=== PATIENT | female | born 1960 | race Caucasian/White ===

== ENCOUNTER → 2020-05-21 13:11 | Outpatient (CLI) | payer OTHER, SELFPAY ==
--- NOTE | ~2020-05-21 | MM_ITS ---
EXAMINATION: MM screening [facility] w [facility]if HISTORY: Screening TECHNIQUE: Craniocaudal and mediolateral oblique 3-D tomosynthesis images were obtained and synthetic 2-D images were generated. CAD analysis was submitted and interpreted. COMPARISON: Comparison to multiple prior studies sequentially, with oldest reviewed study dated 02/19. BREAST PARENCHYMAL COMPOSITION: There are scattered areas of fibroglandular density. FINDINGS: Stable benign-appearing bilateral breast calcifications. There is no evidence of suspicious mass, calcification, or architectural distortion to suggest malignancy in either breast. There has b een no suspicious interval change. IMPRESSION: 1. No mammographic evidence of malignancy. 2. Recommend routine screening mammography in one year. BI-RADS Category 2: Benign finding(s). Reviewed, dictated and finalized at location A. 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
== END ==
DX: Z12.31 Encounter for screening mammogram for malignant neoplasm of breast (principal)
CPT/HCPCS: 77063; 77067

== ENCOUNTER → 2021-07-02 14:01 | Outpatient (CLI) | payer OTHER, SELFPAY ==
--- NOTE | ~2021-07-02 | MM_ITS ---
EXAMINATION: MM screening [facility] BI w sherif HISTORY: Screening mammogram TECHNIQUE: Craniocaudal and mediolateral oblique 3-D tomosynthesis images were obtained and synthetic 2-D images were generated. CAD analysis was submitted and interpreted. COMPARISON: 05/21/2020, 05/04/2019, 04/15/2018 BREAST PARENCHYMAL COMPOSITION: There are scattered areas of fibroglandular density. FINDINGS: There is no suspicious mass, calcification, or architectural distortion to suggest malignan cy in either breast. There has been no suspicious interval change. IMPRESSION: 1. No mammographic evidence of malignancy. 2. Recommend routine screening mammography in one year. BI-RADS Category 1: Negative Reviewed, dictated and finalized at location A.
== END ==
DX: Z12.31 Encounter for screening mammogram for malignant neoplasm of breast (principal)
CPT/HCPCS: 77063; 77067

== ENCOUNTER → 2022-10-07 11:10 | Outpatient (CLI) | payer OTHER, SELFPAY ==
--- NOTE | ~2022-10-07 | MM_ITS ---
EXAMINATION: MM screening [facility] w sherif HISTORY: Screening mammogram TECHNIQUE: Craniocaudal and mediolateral oblique 3-D tomosynthesis images were obtained and synthetic 2-D images were generated. CAD analysis was submitted and interpreted. COMPARISON: 07/02/2021, 05/21/2020, 05/04/2019 bilateral screening mammogram examinations BREAST PARENCHYMAL COMPOSITION: There are scattered areas of fibroglandular density. FINDINGS: There is no evidence of suspicious mass, calcification, or architectural distortion to sugg est malignancy in either breast. There has been no suspicious interval change. IMPRESSION: 1. No mammographic evidence of malignancy. 2. Recommend routine screening mammography in one year. BI-RADS Category 1: Negative Reviewed, dictated and finalized at location A.
== END ==
PROVIDERS: PCP Student in an Organized Health Care Education/Training Program
DX: Z12.31 Encounter for screening mammogram for malignant neoplasm of breast (principal)
CPT/HCPCS: 77063; 77067

== ENCOUNTER 2024-01-12 14:56 | Outpatient (CLI) | payer OTHER, SELFPAY ==
--- NOTE | ~2024-01-12 | MM_ITS ---
EXAMINATION: MM screening [facility] BI w sherif HISTORY: Screening TECHNIQUE: Craniocaudal and mediolateral oblique 3-D tomosynthesis images were obtained and synthetic 2-D images were generated. CAD analysis was submitted and interpreted. COMPARISON: Comparison to multiple prior studies sequentially, with oldest reviewed study dated 03/20. BREAST PARENCHYMAL COMPOSITION: Not dense: There are scattered areas of fibroglandular density. FINDINGS: There is no evidence of suspicious mass, calcification, or architectural distortion to sugg est malignancy in either breast. There has been no suspicious interval change. IMPRESSION: 1. No mammographic evidence of malignancy. 2. Recommend routine screening mammography in one year. BI-RADS Category 1: Negative Reviewed, dictated and finalized at location B.
== END 2024-01-12 14:57 | disposition home or self-care (01) ==
LOC: MICIMG 14:57
PROVIDERS: PCP Student in an Organized Health Care Education/Training Program
DX: Z12.31 Encounter for screening mammogram for malignant neoplasm of breast (principal)
CPT/HCPCS: 77063; 77067

== ENCOUNTER 2024-04-06 01:09 | Day surgery (SDC) | payer OTHER, SELFPAY ==
[2024-03-30 11:15] VITALS: BMI 22.9
[2024-04-06 12:39] VITALS: BP 120/77; PULSE 90; RESP 14; TEMP 36.2; O2SAT 100
[2024-04-06] MEDS: LACTATED RINGERS 1,000 ML 150 ML IV CONT (12:47)
--- NOTE | 2024-04-06 13:48 | PM.IMHP ---
H&P: HPI History of Present Illness Date/Time: 04/06/24 13:48 Chief Complaint: Dysphagia Narrative: On 02/23/2024 I performed a balloon dilatation up to 15 mm in this patient with a peptic stricture. There was esophagitis and a possible Dennis's esophagus that could not be very well characterized because of the inflammatory component. She is here for follow-up. She states that she can swallow normally solids and liquids after dilatation. She is currently taking omeprazole 20 mg b.i.d.. Review of Systems Review of Systems: All systems reviewed & are unremarkable except as noted in HPI and below PMFSH Past Medical History Medical History Barretts esophagus GERD with esophagitis Lymphocytic colitis Family History Family History Mother Family history of schizophrenia Father Hypertension Other Diabetes mellitus Family history of cardiovascular disease Family history of mental disorder Social History Social History Smoking status: Never smoker Alcohol intake: never Substance use: never Substance use type: does not use Living arrangements: with family Spiritual care concerns: No Meds Home Medications and Allergies Home Medications ?Medication ?Instructions ?Recorded ?Confirmed ?Type ascorbate calcium (vitamin C) 500 500 mg PO BID 01/19/23 04/06/24 History mg tablet cholecalciferol (vitamin D3) 50 50 mcg PO DAILY 01/19/23 04/06/24 History mcg (2,000 unit) capsule multivitamin (Daily Multi-Vitamin 1 tablet PO DAILY 01/19/23 04/06/24 History tablet) budesonide 3 mg 3 mg PO DAILY #90 ea 02/24/24 04/06/24 Rx capsule,delayed,extended release omeprazole 20 mg tablet,delayed 20 mg PO BID #60 tabs 02/24/24 04/06/24 Rx release zinc 22 mg tablet 22 mg PO DAILY 03/30/24 04/06/24 History cetirizine 10 mg tablet (24Hour 10 mg PO DAILY allergy symptoms 04/06/24 04/06/24 History Allergy) Allergies Allergy/AdvReac Type Severity Reaction Status Date / Time clindamycin Allergy Unknown Rash Verified 03/30/24 11:34 erythromycin base Allergy Unknown Unknown Verified 03/30/24 11:34 ibuprofen Allergy Unknown Unknown Verified 03/30/24 11:34 Penicillins Allergy Unknown Unknown Verified 03/30/24 11:34 Sulfa (Sulfonamide Allergy Unknown Unknown Verified 03/30/24 11:34 Antibiotics) tetracycline Allergy Unknown RASH Verified 03/30/24 11:34 Tetracyclines Allergy Unknown Unknown Verified 03/30/24 11:34 Vital Signs Vital Signs - 24 hr 04/06/24 12:39 Temperature 97.1 F L Pulse Rate 90 Respiratory Rate 14 Blood Pressure 120/77 Pulse Oximetry 100 Oxygen Delivery Room Air Exam Const: General: cooperative and healthy appearing Resp: Effort & Inspection: normal respiratory effort and able to speak in complete sentences Auscultation: clear to auscultation bilaterally Cardio: Rate: regular rate Rhythm: regular rhythm GI: Inspection: normal to inspection GI Palp: No No hepatosplenomegaly present Auscultation: normal bowel sounds Rectal Exam: deferred Skin: General skin exam: normal color Psych: Appearance: grossly normal Mental Status: mental status grossly normal Assessment and Plan Assessment and plan (1) Peptic stricture of esophagus: Code(s): K22.2 - Esophageal obstruction Status: Acute Assessment and Plan: The patient is deemed a good candidate for the procedure. Will probablly take biopsies to r/o Dennis's and perform balloon dilatation as needed. Consent signed. Will proceed. (2) Barretts esophagus: Code(s): K22.70 - Dennis's esophagus without dysplasia Status: Acute
--- NOTE | 2024-04-06 13:49 | P.PNAN_ITS ---
Anes - Initial Pre Proc Eval Procedure: Operation Date: 04/06/24 14:00 Proposed Procedures p Esophagogastroduodenoscopy - Uche Lloyd MD Date/Time: 04/06/24 13:49 Surgeon: Uche Lloyd MD Pre Op Diagnosis: Esophageal obstruction Patient Data Age: 63 Gender: F Height: 1.68 m Weight: 61.9 kg Last Vital Signs Temp 36.2 C L 04/06/24 12:39 Pulse 90 04/06/24 12:39 Resp 14 04/06/24 12:39 BP 120/77 04/06/24 12:39 Pulse Ox 100 04/06/24 12:39 O2 Del Method Room Air 04/06/24 12:39 Allergies Allergy/AdvReac Type Severity Reaction Status Date / Time clindamycin Allergy Unknown Rash Verified 03/30/24 11:34 erythromycin base Allergy Unknown Unknown Verified 03/30/24 11:34 ibuprofen Allergy Unknown Unknown Verified 03/30/24 11:34 Penicillins Allergy Unknown Unknown Verified 03/30/24 11:34 Sulfa (Sulfonamide Allergy Unknown Unknown Verified 03/30/24 11:34 Antibiotics) tetracycline Allergy Unknown RASH Verified 03/30/24 11:34 Tetracyclines Allergy Unknown Unknown Verified 03/30/24 11:34 Home Medications ?Medication ?Instructions ?Recorded ?Confirmed ?Type ascorbate calcium (vitamin C) 500 500 mg PO BID 01/19/23 04/06/24 History mg tablet cholecalciferol (vitamin D3) 50 50 mcg PO DAILY 01/19/23 04/06/24 History mcg (2,000 unit) capsule multivitamin (Daily Multi-Vitamin 1 tablet PO DAILY 01/19/23 04/06/24 History tablet) budesonide 3 mg 3 mg PO DAILY #90 ea 02/24/24 04/06/24 Rx capsule,delayed,extended release omeprazole 20 mg tablet,delayed 20 mg PO BID #60 tabs 02/24/24 04/06/24 Rx release zinc 22 mg tablet 22 mg PO DAILY 03/30/24 04/06/24 History cetirizine 10 mg tablet (24Hour 10 mg PO DAILY allergy symptoms 04/06/24 04/06/24 History Allergy) Patient hx anesthesia problems: none Family hx anesthesia problems: none Results Review: All pre-operative results and documents have been reviewed as part of the pre- operative evaluation. PMFSH Past Medical History Medical History Barretts esophagus GERD with esophagitis Lymphocytic colitis Family History Family History Mother Family history of schizophrenia Father Hypertension Other Diabetes mellitus Family history of cardiovascular disease Family history of mental disorder Social History Social History Smoking status: Never smoker Alcohol intake: never Substance use: never Substance use type: does not use Living arrangements: with family Spiritual care concerns: No Anes - Eval Final PreProcedure Day of Procedure 04/06/24 13:49 Patient weight: normal Heart: regular rate and rhythm Lungs: clear to auscultation Airway: Mallampati scale class II Neurological: alert and oriented Last oral intake: >/= 8 hours ASA classification: II Emergent: no Anesthetic plan: proceed Anesthesia type and monitoring: general GIVS and standard monitoring Results Review: All pre-operative results and documents have been reviewed as part of the pre- operative evaluation. Informed Consent: The patient's anesthetic plan and its attendant risks and benefits were discussed with the patient/family/POA. Questions were solicited and answers provided to the satisfaction of the patient/family/POA.
[2024-04-06 14:05] VITALS: BP 119/77; PULSE 73; RESP 19; O2SAT 99
[2024-04-06 14:15] VITALS: BP 119/69; PULSE 74; RESP 19; O2SAT 99
[2024-04-06 14:25] VITALS: BP 137/72; PULSE 64; RESP 16; O2SAT 99
== END 2024-04-06 14:38 | disposition home or self-care (01) ==
PROVIDERS: PCP Student in an Organized Health Care Education/Training Program; Visit Provider Internal Medicine Gastroenterology
PROC: 0DJ08ZZ Inspection of Upper Intestinal Tract, Via Natural or Artificial Opening Endoscopic (ICD-10-PCS; CPT 43235; principal; 2024-04-06 14:00)
DX: Z09 Encounter for follow-up examination after completed treatment for conditions other than malignant neoplasm (principal); K21.9 Gastro-esophageal reflux disease without esophagitis; Z87.19 Personal history of other diseases of the digestive system
CPT/HCPCS: 43239; 88305; J2003; J2704; J7120

== ENCOUNTER 2024-08-10 06:42 | Outpatient (CLI) | payer OTHER, SELFPAY ==
--- NOTE | ~2024-08-10 | CT_ITS ---
Clinical Indication: Unintended weight loss CT Scan of the Chest, Abdomen, and Pelvis with Contrast: Technique: Contiguous sections were acquired throughout the chest, abdomen, and pelvis after intraven ous administration of 100 cc of Omnipaque 350. Dose reduction technique was used on this scan by mateus lincoln automated exposure control and iterative reconstruction technique. The dose-length product (DL P) was 380.64 mGy-cm. Findings: There is no evidence of any significant mediastinal, hilar or axillary lymphadenopathy. The mediastin al soft tissues appear normal. There is no evidence of pleural or pericardial effusion. The lungs are clear. No pulmonary nodules or infiltrates are noted. The liver, spleen, pancreas, gallbladder, adrenals and kidneys are within normal limits. No evidence of aortic aneurysm. No lymphadenopathy. No bowel obstruction or bowel wall thickening. There is no evidence to suggest acute appendicitis. Urinary bladder is unremarkable. No pelvic mass seen. No ascites. Impression: No significant abnormalities seen. Reviewed, dictated and finalized at [facility]. Impression: No significant abnormalities seen.
--- OUTSIDE RECORDS SUMMARY | 2024-08-10 06:48 | XMS_ITS | Referral Summary ---
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 Dennis's esophagus 06/16/2010 Social History Tobacco Use Types Packs/Day Years Used Date Smoking Tobacco: Never Assessed Comments Unknown Sex and Gender Information Value Date Recorded Sex Assigned at Not on file 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 Gender Identity Not on file Sexual Orientation Not on file Last Filed Vital Signs Vital Sign Reading Time Taken Comments Blood Pressure 146/80 07/09/2016 3:10 PM CDT Pulse 102 07/09/2016 3:10 PM CDT Temperature - - Respiratory Rate - - Oxygen Saturation 100% 07/09/2016 3:10 PM CDT Inhaled Oxygen Concentration - - Weight 71.7 kg (158 lb 0.1 oz) 07/09/2016 3:10 P M CDT Height 167.6 cm (5' 6 ) 07/09/2016 3:10 PM CDT Body Mass Index 25.5 07/09/2016 3:10 PM CDT Plan of Treatment Not on file Insurance [employer] [facility] Care Teams 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
--- OUTSIDE RECORDS SUMMARY | 2024-08-10 06:48 | XMS_ITS | Clinical Summary ---
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 Dennis's esophagus 06/16/2010 Surgical History Surgery Date Site/Laterality Comments ABSCESS TUBE EXCHANGE 12/28/2014 N/A ABSCESS CATHETER INJECTION 12/28/2014 N/A ABSCESS CATHETER INJECTION 12/21/2014 N/A ABSCESS TUBE EXCHANGE 12/07/2014 N/A ABSCESS CATHETER INJECTION 12/07/2014 N/A Social History Tobacco Use Types Packs/Day Years Used Date Smoking Tobacco: Never Assessed Comments Unknown Sex and Gender Information Value Date Recorded Sex Assigned at Not on file 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 Care Teams Welt Wheeler Relationship Specialty Start Date End Date Jose Sosa MD [address] [facility] [address] [place], [place] [id number] PCP - General Family Medicine 10/14/17
--- OUTSIDE RECORDS SUMMARY | 2024-08-10 06:49 | XMS_ITS | Continuity of Care Document ---
Author Organization [facility] Address [address] [place] [address] Phone Care Team Providers Care Trackmobile Operator Name Role Phone Harvey Blood MD Unavailable Unavailable Allergies, Adverse Reactions, Alerts Substance Reaction Status Criticality Sulfa (Sulfonamide Antibiotics) Active No Information ibuprofen Active No Information erythromycin base Active No Informa tion PENICILLIN Active No Information Medications Medication Instructions Dosage Effective Dates (start - stop) Status Comments No Drug Therapy Prescribed Procedures Procedure Date OFFICE/OUTPATIENT VISIT, [facility] PREV VISIT, NEW, AGE 40-64 OFFICE/OUTPATIENT VISIT, [facility] Advance Directives Directive Yes / No Effective Date File Name No Information Encounters Encounter Description Practice Location Reason(s) For Visit Diagnoses Date Provider Providers Copied on Encounter OFFICE/OUTPA TIENT VISIT, EST [facility], [address] [place], [place], [id number], tel:[phone] [facility] liver (chief complaint) HLP (chief complaint) GERD1 (chief complaint) HyperlipidemiaGERD w/ esophagitisAnemiaLi nixon disease 7 Jeremi Gabriel. [address] [facility] [place], [id number] , [place]. tel:[phone] PREV VISIT, NEW, AGE 40-64 [facility], [address] [place], [id number], [place] tel:[phone] [facility] Physical (chief complaint) Encounter for general adult medical exam w abnormal findingsEssential (primary) hypertensionAnemiaL iver disease 7 Jeremi [address]. [address] [place], [place], [id number] , [place]. tel:[phone] Family History Family Member Type Diagnosis Age At Onset Sister Problem (finding) RA Sister Problem (finding) Alive and well Father Problem (finding) Father Problem (finding) of 59 from pneumon ia Mother Problem (finding) schizophrenia, DM, COPD Payers Payer name Insurance type Covered libertarian ID Authoriza tion(s) No Information Social History Type Description Quantity Date Captured Comments Alcohol Use Details No Caffeine Use Details Unknown Tobacco Use Status Never smoked tobacco 2016 Smoking Status Never smoker Sex Female Vital Signs Date / Time: Height Weight BMI Pulse Rate Blood Pressure Temperature Respiratory Rate Body Surface Area Head Circumference BMI percentile Pulse Ox Inhaled Ox 10:47 AM 167.64 cm 162.00 lbs 26.1 5 kg/m eter (2) 96 /min 137/78 mm[Hg] 97.7 F 18 /min Chief Complaint And Reason For Visit From encounter dated '06/05/2016 10:47'. liver (chief complaint). Description: Pt has hsitory of liver disease Her repeat LFT is ok and no hepatitis HLP (chief complaint). Description: Pt has HLP Pt has been trying low fat and low carb diet GERD1 (chief complaint). Description: Pt states that she does not have any GERD anymore Pt has not been on PPI sicne 2011. Pt had normal colonospcy 2011 and also she had esophagitis back in 2011. Pt denies any abd pain or GERD now Plan Of Treatment Date Type Action Status Referral Ordered: US EXAM, ABDOM, COMPLETE ordered History Of Present Illness Encounter Date Complaint History Of Prese nt Illness liver Pt has hsitory o f liver disease Her repeat LFT is ok and no hepatitis HLP Pt has HLP Pt bermudez s been trying low fat and low carb diet GERD1 Pt states that s he does not have any GERD anymore Pt has not been on PPI sicne 2011. Pt had normal colonospcy 2011 and also she had esophagitis back in 2011. Pt denies any abd pain or GERD now Physical Pt needs annual physical. Pt has histor of Dennis esophagus s/p lobsterman history of omeprazole. Pt has history of anemia for unknown etiology. Pt seen hematology and was told the anemia is from prilosec. Pt denies any GERD symptoms. Pt had EGD 2011 and colonoscopy which was normal per patient. Pt currently denies any abd pain or any GERD symptoms. Pt told me she has history of liver disease from too much tylenol? Pt does not drink alcohol. Pt denies any abd pain. Pt denies any other complaints Medications Administered Medication Instructions Dosage Effective Dates (start - stop) Status Comments No Drug Therapy Prescribed Instructions Date Instruction Additional Infor mation Prescribed Activity and Exercise Education Related to Dietary Surveillance and Counseling Prescribed Diet Educ ation/Lifestyle Education Regarding Diet Related to Dietary Surveillance and Counseling Assessments Type Assessment Date assessment Hyperlipidemia assessment GERD w/ esophagitis assessment Anemia assessment Liver disease Mental Status Date Cognitive Assessment Orientation - [place] ed to time, place, person, situation.
--- OUTSIDE RECORDS SUMMARY | 2024-08-10 06:49 | XMS_ITS | Data Portability ---
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 Plan of Treatment Reminders Order Date Submit Date Provider Last Modified By Organization Details Last Modified Time Details Appointments ANNUAL/WE LL WOMAN EST 2024 09:15A MARY Nevarez Not available Not available Not available Lab HPV E6+E7 mRNA, qualitati ve PCR, cervix 2023 024 [facility], [address] [place], [address], 09/01/2023 15:34:45 pap, LB 2023 024 [facility], [address] [place], [address], 09/03/2023 12:08:22 HPV E6+E7 mRNA, qualitati ve PCR, cervix 2022 023 [facility], [address] [place], [address], 07/28/2022 15:51:27 pap, LB 2022 023 [facility], [address] [place], [address], 07/30/2022 14:47:34 HPV E6+E7 mRNA, qualitati ve PCR, cervix 2021 022 [facility] Ricardo, [address] [place], [address], 05/13/2021 17:04:31 pap, LB 2021 022 [facility], [address] [facility], [place], [address], 05/15/2021 12:04:24 Referral None recorded. Procedures None recorded. Surgeries None recorded. Imaging MAMMO, screening , digital, bilateral 2022 023 [email or web address], [address], [address] [address], [place], [address], 08/12/2022 16:56:03 bone density 2021 022 [email or web address] Not available 07/10/2021 14:19:04 MAMMO, screening , digital, bilateral 2021 022 [email or web address] Not available 07/10/2021 14:19:04 Medication Orders None recorded. Patient TargetsNo targets recorded. Patient Instructions Encounter Date Encounter Id Patient Instructions Last Modified By Organization Details Last Modified Time 07/27/2022 [id number] A healthy lifestyle: care instructions [email or web address] Not available 07/27/2022 09:19:35 calcium and vitamin D combination [email or web address] Not available 07/27/2022 09:19:36 depression (wome n only) [email or web address] Not available 07/27/2022 09:19:36 eating healthy foods: care instructions [email or web address] Not available 07/27/2022 09:19:36 exercise program : getting started [email or web address] Not available 07/27/2022 09:19:36 protect bone wit h calcium and vitamin D [email or web address] Not available 07/27/2022 09:19:36 osteoporosis education [email or web address] Not available 07/27/2022 09:19:36 breast self-exam : care instructions [email or web address] Not available 07/27/2022 09:19:36 08/31/2023 [id number] A healthy lifestyle: care instructions [email or web address] Not available 08/31/2023 10:44:57 calcium and vitamin D combination [email or web address] Not available 08/31/2023 10:44:57 depression (wome n only) [email or web address] Not available 08/31/2023 10:44:56 eating healthy foods: care instructions [email or web address] Not available 08/31/2023 10:44:57 exercise program : getting started [email or web address] Not available 08/31/2023 10:44:56 protect bone wit h calcium and vitamin D [email or web address] Not available 08/31/2023 10:44:56 osteoporosis education [email or web address] Not available 08/31/2023 10:44:56 breast self-exam : care instructions [email or web address] Not available 08/31/2023 10:44:57 Reason for Referral None Reported. Results Created Date Observation Date Name Description Value Unit Range Abnormal Flag Note LastModifiedBy Organization Detail LastModifiedTime 05/09/19 22 05/13/2021 HPV HIGH RISK HPV high risk Negati ve negati ve Not Available [facility] [address] [place], [address], 05/13/2021 17:04:31 05/12/19 22 05/15/2021 THINP REP TIS PAP clinical information: normal Infor matio n not provi ded Not Available [facility] [address], [address], 05/15/2021 12:04:24 05/12/19 22 05/15/2021 THINP REP TIS PAP LMP: normal NONE GIVEN Not Available [facility] [id number] [place], [address], 05/15/2021 12:04:24 05/12/19 22 05/15/2021 THINP REP TIS PAP prev. Pap: normal NONE GIVEN Not Available [facility] [address] [place], [address], 05/15/2021 12:04:24 05/12/19 22 05/15/2021 THINP REP TIS PAP prev. BX: normal NONE GIVEN Not Available [facility] [address], [address], 05/15/2021 12:04:24 05/12/19 22 05/15/2021 THINP REP TIS PAP source: normal None given Not Available [address], [address], 05/15/2021 12:04:24 05/12/19 22 05/15/2021 THINP REP TIS PAP statement of adequacy: normal SATIS FACTO RY FOR EVALU ATION Not Available [address], [address], 05/15/2021 12:04:24 05/12/19 22 05/15/2021 THINP REP TIS PAP interpretati on/result: Negat emely for intra epith elial lesio n or reilly morris . Atrop sonny loving rn; predo karen wreny parab kyrie cells Not Available [address], [address], 05/15/2021 12:04:24 05/12/19 22 05/15/2021 THINP REP TIS PAP comment: normal This Pap test has been evalu ated with juan josé at[employer] . Not Available [address], [address], 05/15/2021 12:04:24 05/12/19 22 05/15/2021 THINP REP TIS PAP cytotechnolo gist: normal GINA, CT( CP) CT scree taniya locat ion: [address] [address] [place] [address] Not Available [address] [place], [address], 05/15/2021 12:04:24 05/12/19 22 05/15/2021 THINP REP TIS PAP comment EXPLA NATOR Y NOTE: The Pap is a scree taniya test for cervi anshul cance r. It is not a diagn ostic test and is subje ct to false negat emely and false posit emely resul ts. It is most relia ble when a satis facto ry sampl e, regul priti obtai kitty, is submi tted with relev ant clini anshul findi ngs and histo ry, and when the Pap resul t is evalu ated along with histo simon and curre nt clini anshul infor matio n. Not Available [address] [place], [address], 05/15/2021 12:04:24 07/28/19 23 07/28/2022 HPV HIGH RISK HPV high risk Negati ve negati ve normal The HPV High Risk assay is inten ded for use as co-te sting with cytol ogy and not as a subst itute for regul ar cervi anshul cytol ogy scree taniya. This assay is not inten ded for use as a scree taniya devic e for women under age 30 with brittaney l cervi anshul cytol ogy. Not Available [address], [address], 07/28/2022 15:51:27 07/28/19 23 07/30/2022 THINP REP TIS PAP clinical information: normal None given Not Available [address] [address] [place], [address], 07/30/2022 14:47:34 07/28/19 23 07/30/2022 THINP REP TIS PAP LMP: normal NONE GIVEN Not Available [address] [place], [address], 07/30/2022 14:47:34 07/28/19 23 07/30/2022 THINP REP TIS PAP prev. Pap: normal NONE GIVEN Not Available [facility] [address] [place], [address], 07/30/2022 14:47:34 07/28/19 23 07/30/2022 THINP REP TIS PAP prev. BX: normal NONE GIVEN Not Available [address] [place], [address], 07/30/2022 14:47:34 07/28/19 23 07/30/2022 THINP REP TIS PAP source: normal Cervi x Not Available [address] [address] [place], [address], 07/30/2022 14:47:34 07/28/19 23 07/30/2022 THINP REP TIS PAP statement of adequacy: normal SATIS FACTO RY FOR EVALU ATION Not Available [address], [address], 07/30/2022 14:47:34 07/28/19 23 07/30/2022 THINP REP TIS PAP interpretati on/result: Negat emely for intra epith elial lesio n or reilly morris . Atrop sonny loving rn; predo karen wreny parab kyrie cells Not Available [address] [address] [place], [address], 07/30/2022 14:47:34 07/28/19 23 07/30/2022 THINP REP TIS PAP comment: normal This Pap test has been evalu ated with juan josé atkins [employer] . Not Available [address] [address] [place], [address], 07/30/2022 14:47:34 07/28/19 23 07/30/2022 THINP REP TIS PAP cytotechnolo gist: normal LMT, CT( CP) CT scree taniya locat ion: [address] [address] [place] [address] Not Available [address] [place], [address], 07/30/2022 14:47:34 07/28/19 23 07/30/2022 THINP REP TIS PAP comment EXPLA NATOR Y NOTE: The Pap is a scree taniya test for cervi anshul cance r. It is not a diagn ostic test and is subje ct to false negat emely and false posit emely resul ts. It is most relia ble when a satis facto ry sampl e, regul priti obtai kitty, is submi tted with relev ant clini anshul findi ngs and histo ry, and when the Pap resul t is evalu ated along with histo simon and curre nt clini anshul infor matio n. Not Available [address], [address], 07/30/2022 14:47:34 08/31/19 24 09/01/2023 HPV HIGH RISK HPV high risk Negati ve negati ve normal The HPV High Risk assay is inten ded for use as co-te sting with cytol ogy and not as a subst itute for regul ar cervi anshul cytol ogy scree taniya. This assay is not inten ded for use as a scree taniya devic e for women under age 30 with brittaney l cervi anshul cytol ogy. Not Available [address], [address], 09/01/2023 15:34:45 08/31/19 24 09/03/2023 THINP REP TIS PAP clinical information: normal None given Not Available [address], [address], 09/03/2023 12:08:22 08/31/19 24 09/03/2023 THINP REP TIS PAP LMP: normal None given Not Available [address], [address], 09/03/2023 12:08:22 08/31/19 24 09/03/2023 THINP REP TIS PAP prev. Pap: normal None given Not Available [address], [address], 09/03/2023 12:08:22 08/31/19 24 09/03/2023 THINP REP TIS PAP prev. BX: normal None given Not Available [address], [address], 09/03/2023 12:08:22 08/31/19 24 09/03/2023 THINP REP TIS PAP source: normal Cervi x Not Available [address], [address], 09/03/2023 12:08:22 08/31/19 24 09/03/2023 THINP REP TIS PAP statement of adequacy: normal SATIS FACTO RY FOR EVALU ATION Not Available [address], [address], 09/03/2023 12:08:22 08/31/19 24 09/03/2023 THINP REP TIS PAP interpretati on/result: Cytol ogy Resul ts: Negat emely for intra epith elial lesio n or malig arturo . Atrop sonny loving rn; predo karen javier parab kyrie cells Not Available [address] [address] [facility] [place], [address], 09/03/2023 12:08:22 08/31/19 24 09/03/2023 THINP REP TIS PAP comment: normal This Pap test has been evalu ated with sunnyu atkins techn ology . Not Available [address] [address] [place], [address], 09/03/2023 12:08:22 08/31/19 24 09/03/2023 THINP REP TIS PAP cytotechnolo gist: normal BKA, CT( CP) CT scree taniya locat ion: [address] [address] [place] [address] Not Available [address], [address], 09/03/2023 12:08:22 08/31/19 24 09/03/2023 THINP REP TIS PAP comment EXPLA NATOR Y NOTE: The Pap is a scree taniya test for cervi anshul cance r. It is not a diagn ostic test and is subje ct to false negat emely and false posit emely resul ts. It is most relia ble when a satis facto ry sampl e, regul priti obtai kitty, is submi tted with relev ant clini anshul findi ngs and histo ry, and when the Pap resul t is evalu ated along with histo simon and curre nt clini anshul infor matio n. Not Available [address] [address] [place], [address], 09/03/2023 12:08:22 01/13/20 24 01/12/2024 imagi ng/di agnos tic resul t No observ ation record ed. [facility] [address], [place], [address], 01/14/2024 19:27:35 Result Notes None recorded. Problems No Known Problems Procedures Surgical History Date Name Laterality Status Provider Name and Address Organization Details Recorded Time 04/15/20 23 Date of Last Pap Smear completed [employer] [facility] 08/31/2023 10:19:22 09/28/19 23 Most Recent Mammogram completed [employer] [facility] 08/31/2023 10:19:23 05/08/19 17 Date of Last Colonoscopy completed [facility] IV 07/27/2022 09:05:57 05/21/19 10 Most Recent Bone Density completed [employer] IV 08/31/2023 10:19:23 Bx of cervix w/scope leep completed [employer] [facility] IV 05/08/2021 20:59:11 colonoscopy completed [employer] IV 05/08/2021 20:59:57 Imaging Results Imaging Date Name Status LastModified by Organiz ation Details LastModified Time 01/12/2024 imaging/diag nostic result completed [facility] [address], [place], [address], 01/14/2024 19:27:35 Procedure Notes None recorded. Medical Equipment None Reported. Allergies Allergen ID Allergen Name Allergen Category Reaction Reaction Severity Criticality Documentation Date Start Date Code Code System Note Provider Name and Address Organization Details Recorded Time 460189 Product containin g penicilli n (product) medicatio n Not available Not available Not available 02/07/20212015 97603 8001 SNOMED Sever ity: Moder ate; Not Available Not Available Not Available 430422 ibuprofen medicatio n Not available Not available Not available 02/07/20212015 5640 RxNorm Sever ity: Moder ate; Not Available Not Available Not Available 542302 Substance with sulfonami de structure and antibacte rial mechanism of action (substanc e) medicatio n Not available Not available Not available 02/07/20212015 24175 8003 SNOMED Sever ity: Moder ate; Not Available Not Available Not Available 319360 tetracycl ine hydrochlo ride medicatio n Not available Not available Not available 02/07/20212015 44314 6 RxNorm Sever ity: Moder ate; Not Available Not Available Not Available 728792 amoxicill in medicatio n Not available Not available Not available 02/07/20212018 723 RxNorm Sever ity: Moder ate; Not Available Not Available Not Available 263777 mold extract environme nt Not available Not available Not available 08/31/2023 13020 8 RxNorm Not Available Not Available Not Available Medications Name Sig Start Date Stop Date Status Note LastModified by Organization Details LastModified Time nystatin 100,000 unit/gram topical ointment APPLY TO THE AFFECTED AREA TWICE DAILY 08/30 completed Not Available Not Available Not Available levofloxa angélica 250 mg tablet 08/30 completed Not Available Not Available Not Available Macrobid 100 mg capsule take 1 capsule (100 mg) by oral route 2 times per day with food 05/09 completed Macrobid 100 mg oral capsule RxNorm: 909634 Allow Substitu tion: True Refill Denied: No Edited by: jennifer cleveland(Enmanuelnt onMonica ) on 12/29/19 20 Stopped by: jennifer cleveland(Thornt on, Monica ) on Not Available Not Available Not Available budesonid e 0.5 mg/2 mL suspensio n for nebulizat ion active Not Available Not Available Not Available budesonid e DR - ER 3 mg capsule,d elayed,ex tended release active Not Available Not Available Not Available Pepcid 20 mg tablet Take 1 tablet twice a day by oral route. 08/30 completed Not Available Not Available Not Available Vitamin C active Not Available Not Pilar ilable Not Available zinc active Not Available Not Availa ble Not Available Multivita mins 2015 active Multivit amins Allow Substitu tion: True Refill Denied: No Refill DateOccu rred: 02/13/20 16 Edited by: jennifer cleveland(Enmanuelnt on, Monica ) on 12/29/19 20 Stopped by: jennifer cleveland(Thornt on, Monica ) on Not Available Not Available Not Available fenofibra te nanocryst allized 145 mg tablet 05/09 completed Not Available Not Available Not Available Kids Vitamin D3 2015 active Kids Vitamin D3 Allow Substitu tion: True Refill Denied: No Refill DateOccu rred: 02/13/20 16 Edited by: jennifer cleveland(Thornt on, Monica ) on 12/29/19 20 Stopped by: jennifer cleveland(Enmanuelnt on, Monica ) on Not Available Not Available Not Available Vagifem 10 mcg vaginal tablet Insert 1 vaginal tablet(s ) at bedtime nightly this week, then 2 times weekly 08/11 completed Vagifem 10mcg Vaginal Tablets RxNorm: 516971 Allow Substitu tion: True Refill Denied: No Not Available Not Available Not Available Michelle Allergy active Not Available Not Available Not Available Liquid C 05/09 completed Liquid C Allow Substitu tion: True Refill Denied: No Refill DateOccu rred: 02/13/20 16 Edited by: jennifer cleveland(Thornt on, Monica ) on 12/29/19 20 Stopped by: jennifer cleveland(Thornt on, Monica ) on Not Available Not Available Not Available Vitals Date Recorded Body weight Body temperature Body mass index (BMI) Body height Systolic blood pressure Diastolic blood pressure Provider Name and Address Organization Details Last Updated DateTime 2 38012.7 4 g 96.2 [degF] 26.6 kg/m2 167.64 cm 118 mm[Hg] 64 mm[Hg] Lottie Wall [employer] [facility] 2 09:52:40 Date Recorded Body weight Body mass index (BMI) Body height Systolic blood pressure Diastolic blood pressure Provider Name and Address Organization Details Last Updated DateTime 07/27/2022 15426.03 g 25.2 kg/m2 168.91 cm 120 mm[Hg] 76 mm[Hg] Emilia Badillo [employer] [facility] 3 09:01:19 Date Recorded Body height Body mass index (BMI) Body weight Systolic blood pressure Diastolic blood pressure Provider Name and Address Organization Details Last Updated DateTime 08/31/2023 168.91 cm 24 kg/m2 11568.45 g 118 mm[Hg] 80 mm[Hg] Emilia Badillo [employer] [facility] 4 10:18:30 Social History Question Answer Notes LastModified by [employer]at ion Details LastModified Time Tobacco Smoking Status Never Smoker Emilia Badillo [facility], [employer] [facility] 08/31/2023 10:19:35 Are You Blind Or Do You Have Difficulty Seeing? No [email or web address] Information not available 08/31/2023 Are You Currently Employed? No [email or web address] Information not available 08/31/2023 Are You Deaf Or Do You Have Serious Difficulty Hearing? No [email or web address] Information not available 08/31/2023 What Type Of Diet Are You Following? REGULAR [email or web address] Information not available 08/31/2023 How Many Children Do You Have? 3 [email or web address] Information not available 07/23/2022 What Is Your Relationship Status? [email or web address] Information not available 07/23/2022 Are You Sexually Active? Yes [email or web address] Information not available 05/08/2021 What Types Of Sporting Activities Do You Participate In? Weightlifting Walking [email or web address] Information not available 08/31/2023 Do You Use Any Illicit Or Recreational Drugs? No [email or web address] Information not available 08/31/2023 Sex: Unknown Functional Status Question Answer Note LastModified by Organizat ion Details LastModified Time What is your exercise level? Occasional Information not available 08/31/2023 Mental Status None recorded. Family History Relationship Description Onset Age of this Age Resolved Age Notes LastModified by Organization Details LastModified Time Father No current problems or disability [email or web address] Not available 20:59:16 Mother No current problems or disability [email or web address] Not available 20:59:16 Medical History Condition Response Shingles Y Seasonal allergies Y IBS (Irritable Bowel Syndrome) Y History of Abnormal Pap Y Anemia Y Gynecological History Statement/Question Response Flow Moderate Date of LMP 04/19/2009 HPV Vaccine N Duration of Flow (days) 5 Most Recent Mammogram 09/27/2022 Current Control Method Menopause Age at Menarche 12 If Post Menopausal, Age at Menopause 53 Date of Last Colonoscopy 05/08/2016 Most Recent Bone Density 05/21/2009 Frequency of Cycle (Q days) 32 Date of Last Pap Smear 04/15/2023 Obstetrics History GPAL:G 3 P 3 0 0 3 Type Value Full Term 3 Living 3 Total 3 Past Encounters Encounter ID Performer Location Encounter Start Date Encounter Closed Date Diagnosis/Indication Diagnosis SNOMED-CT Code Diagnosis ICD10 Code Diagnosis Note [id number] Lyudmila Hagen DO [facility] [address] [place] [address] 05/09/2021 09:47:37 05/09/2021 11:34:14 Gynecologic examination 99552259 Z01.419 Screening for malignant neoplasm of cervix 602393268 Z12.4 Screening for malignant neoplasm of breast 921623339 Z12.39 Screening for osteoporosis 654244946 Z13.173 [id number] MARY Lee [facility] [address] [place] [address] 07/27/2022 08:56:51 07/27/2022 09:21:47 Gynecologic examination 75451008 Z01.419 62y.o. here for annual exam.- Pap today, discussed natural course of HPV infection, no new exposures. - Routine labs done with PCP- Mammo due- Colonoscop y UTD- DEXA at age 65- RTO for annual or PRN Screening for malignant neoplasm of cervix 578028128 Z12.4 ASCCP guidelines reviewed with pt. Pap collected and sent. Further POC pending lab result review. Pt states understand ing of POC. Screening for osteoporosis 440501848 Z13.820 Depression screening 171 834883 Z13.31 PHQ9: Negative. Pt educated on normal scoring. No further management needed. Screening mammography of bilateral breasts 2428638332 91769 Z12.31 Client advised to perform self-breas t exams and report any changes. [id number] MARY Lee [facility] [address] [place] [address] 08/31/2023 10:11:08 08/31/2023 10:45:53 Gynecologic examination 81370496 Z01.419 62y.o. here for annual exam.- Pap today, discussed natural course of HPV infection, no new exposures. - Routine labs done with PCP- Mammo due- Colonoscop y UTD- DEXA at age 65- RTO for annual or PRN Screening for malignant neoplasm of cervix 202040318 Z12.4 ASCCP guidelines reviewed with pt. Pap collected and sent. Further POC pending lab result review. Pt states understand ing of POC. Screening for osteoporosis 288086047 Z13.820 Depression screening 171 270863 Z13.31 PHQ9: Negative. Pt educated on normal scoring. No further management needed. Screening mammography of bilateral breasts 8216705458 98391 Z12.31 Client advised to perform self-breas t exams and report any changes. Health Concerns Section Related Observation LastModified by Organization Detai ls LastModified Time None Recorded Concern Status LastModified by Organization Details LastModified Time None Recorded Advance Directives Directive None Recorded Payers Encounter Date Sequence Insurance Name Policy Number Policy Trinh Covered Member ID Trinh Member ID Guarantor Name 05/09/2021 1 [employer] Kira L Shank [id number] Kira L Shank 07/27/2022 1 [employer] Kira L Shank [id number] Kira L Shank 08/31/2023 1 [employer] Kira L Shank [id number] Kira L Shank Notes Date Note Type Note Provider Name and Address Organization Details Recorded Time 05/09/2021 text/html Annual GYNReport ed bypatient.Menstrua l cycle:Normal menses Urinary symptoms:No hematuria; No incontinence Vulva:No genital lesion Vagina:Normal vaginal discharge Breast:No breast pain; No breast lump; No nipple discharge Sexual complaints:No sexual complaints; No pain during intercourse; Normal libido Menopausal Symptoms:No menopausal symptoms; Normal vaginal lubrication Psychological symptoms:No depression; No anxiety; No PMDD Patient presents for annual exam with pap. Last pap: 03/13/19. Results: normalLMP: patient is menopausal, Mammogram: 05/21/20 - normal, Lyudmila Hagen, DO [address] [facility], [place], [address], [facility] [employer] IV 05/09/2021 10:15:42 07/27/2022 text/html Annual GYNReport ed bypatient.Menstrua l cycle:s/p menopause Urinary symptoms:No hematuria; No incontinence Vulva:No genital lesion Vagina:Normal vaginal discharge Breast:No breast pain; No breast lump; No nipple discharge Sexual complaints:No sexual complaints; No pain during intercourse; Normal libido Menopausal Symptoms:No menopausal symptoms; Normal vaginal lubrication Psychological symptoms:No depression; No anxiety; No PMDD Patient presents for annual exam with papLast pap: 05/12/21 Neg/HPV Neg. Hx of abnormalLMP: patient is menopausalMammogra m: 06/12/2021 MARY Lee [address] [facility], [place], [address], [facility] [employer] IV 07/27/2022 09:21:17 08/31/2023 text/html Annual GYNReport ed bypatient.Menstrua l cycle:s/p menopause Urinary symptoms:No hematuria; No incontinence Vulva:No genital lesion Vagina:Normal vaginal discharge Breast:No breast pain; No breast lump; No nipple discharge Sexual complaints:No sexual complaints; No pain during intercourse; Normal libido Menopausal Symptoms:No menopausal symptoms; Normal vaginal lubrication Psychological symptoms:No depression; No anxiety; No PMDD Patient presents for annual exam with papLast pap: 07/27/22 Neg/HPV Neg. Hx of abnormal 20yrs ago. Requests today despite ASCCP guidelinesLMP: patient is menopausalMammogra m: 6/2023Colonoscopy: MARY Messina [address] [facility], [place], [address], [facility] IV 08/31/2023 10:45:46 OBGyn Episode No OBEpisode recorded.
--- OUTSIDE RECORDS SUMMARY | 2024-08-10 06:49 | XMS_ITS | Clinical Summary ---
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 Name Role Phone Unavailable Primary Care Provider Unavailabl e Allergies Active Allergy Reactions Criticality Noted Date Comments Penicillins Hives,Swelling High 10/14/2009 Sulfa (Sulfonamide Antibiotics) Hives,Itching High 0 10/14/2009 Medications No known medications Active Problems Problem Noted Date Diagnosed Date Abnormal mammogram, unspecified 10/14/2009 MVP (mitral valve prolapse) Bulging disc Family History Medical History Relation Name Comments Heart Disease Father Breast Cancer Paternal Grandmother age 76 Cancer Paternal Grandmother stomach Cancer Paternal Uncle Relation Name Status Comments Father Paternal Grandmother Paternal Uncle Social History Tobacco Use Types Packs/Day Years Used Date Smoking Tobacco: Never Alcohol Use Standard Drinks/Week Comments Yes 0 (1 standard drink = 0.6 oz pur e alcohol) 3 drinks per week Comments No Sex and Gender Information Value Date Recorded Sex Assigned at Not on file 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 Gender Identity Not on file Sexual Orientation Not on file Last Filed Vital Signs Vital Sign Reading Time Taken Comments Blood Pressure 138/80 10/14/2009 1:57 PM CDT Pulse - - Temperature - - Respiratory Rate - - Oxygen Saturation - - Inhaled Oxygen Concentration - - Weight 75.8 kg (167 lb) 10/14/2009 1:57 PM CDT Height 167.6 cm (5' 6 ) 10/14/2009 1:57 PM CDT Body Mass Index 26.95 10/14/2009 1:57 PM CDT Plan of Treatment Health Maintenance Due Date Last Done Comments DTAP/TDAP/TD VACCINES (1 - Tdap) 1979 HPV/Cotest (21-29) 1981 CERVICAL CANCER SCREENING 1990 HPV/Cotest (30-65) 1990 PAP SMEAR 1990 COLORECTAL SCREENING 2005 Colorectal Cancer Screening 2005 FIT-DNA Q 3 years 2005 FIT/FOBT Q 1 year 2005 Flex Sig/CT Colonography Q 5 years 2005 ZOSTER VACCINE (1 of 2) 2010 BREAST CANCER SCREENING 09/30/2010 09/30/2009, 09/24 INFLUENZA VACCINE (#1) 2023 RSV VACCINE (60+ or ) (1 - 1-dose 75+ series) 2035 Procedures Procedure Name Priority Date/Time Associated Diagnosis Comments MAMMO SCREEN BILAT W OR WO CAD Routine 09/30/2009 from Last 3 Months or Most Recently Relevant to Health Maintenance Results * MAMMO DIGITAL SCREEN BILAT (09/30/2009) Anatomical Region Laterality Modality Breast Bilateral Other Boubacar Correa MD MAMMO ORDERABLES Final Result from Last 3 Months or Most Recently Relevant to Health Maintenance Insurance [employer] [facility] OPEN ACCESS
--- OUTSIDE RECORDS SUMMARY | 2024-08-10 06:49 | XMS_ITS | Encounter Summary ---
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 Name Role Phone Unavailable Primary Care Provider Unavailabl e Encounter Details Date Type Department Care Team (Late st Contact Info) Description 11/19/2021 Lab Requisition [facility] Derm[facility] Lab [address] [place] [id number] Mohsen Lemus MD [address] [place] [address] Social History Tobacco Use Types Packs/Day Years Used Date Smoking Tobacco: Never Assessed Comments Unknown Sex and Gender Information Value Date Recorded Sex Assigned at Not on file Legal Sex Female 6:37 AM CDT Gender Identity Not on file Sexual Orientation Not on file documented as of this encounter Plan of Treatment Not on file documented as of this encounter Procedures Procedure Name Priority Date/Time Associated Diagnosis Comments DERMATOPATHOLOGY Routine 11/17/2021 3:33 AM CDT documented in this encounter Results * DERMATOPATHOLOGY (11/17/2021 3:33 AM CDT) Case Report Dermatopathology Report Case: [id number] Authorizing Provider: Mohsen Lemus MD Collected: 11/17/2021 03:33 AM Ordering Location: [facility] Lab Received: 11/19/2021 07:06 AM Pathologist: Jade Fisher MD Specimen: Skin, left arm 4:46 PM CDT DERMATOPATHOLOGY LABORATORY Final Diagnosis Specimen A. SKIN, left arm: HYPERPLASTIC (HYPERTROPHIC) ACTINIC KERATOSIS (L57.0) 4:46 PM CDT DERMATOPATHOLOGY LABORATORY Clinical History SCCA vs. SK. Path# [id number] 2 4:46 PM CDT DERMATOPATHOLOGY LABORATORY Gross Description Specimen A: Received is one formalin filled container labeled with the patient's name and designated left arm. The specimen consists of a shave biopsy measuring [id number]. Jar 0. 2 4:46 PM CDT DERMATOPATHOLOGY LABORATORY Microscopic Description Specimen A. SKIN, left arm: There is hyperkeratosis alternating with parakeratosis. There is epidermal hyperplasia with disorderly maturation of keratinocytes with nuclear pleomorphism confined to the lower half of the epidermis. 2 4:46 PM CDT DERMATOPATHOLOGY LABORATORY Disclaimer An external and internal positive and negative controls are appropriate for the histochemical, immunohistochemical and immunofluorescence stain(s) in this case (if any), except where stated explicitly. The performance characteristics of the stain(s) cited in this report were developed and its performance characteristic determined by the Dermatopathology Laboratory at [facility], directed by Dr. Colby Fisher. These tests need not be, and therefore are not, approved by the [place] Food and Drug Administration. The tests are used for clinical purposes. Billing Codes Specimen Charges Stain Charges 15106 1 2 4:46 PM CDT DERMATOPATHOLOGY LABORATORY Embedded Images 2 4:46 PM CDT DERMATOPATHOLOGY LABORATORY Pathology/Cytolo gy TISSUE SPECIMEN FROM SKIN / Unknown 11/17/2021 3:33 AM CDT 11/19/2021 7:06 AM CDT us Mohsen Lemus MD LAB - PATHOLOGY/CYTOLOGY ORDER LATRELL Final Result DERMATOPATHOLOGY LABORATORY [facility] - Department of Dermatology [address], [address] [phone] documented in this encounter Visit Diagnoses Not on filedocumented in this encounter
--- OUTSIDE RECORDS SUMMARY | 2024-08-10 06:49 | XMS_ITS | Clinical Summary ---
Author Organization [facility] Address [facility] [place] [address] Care Team Providers Care Corporate Planning Manager Name Role Phone Stewart Hernandez DO Primary Care Provider + Allergies Active Allergy Reactions Criticality Noted Date Comments Amoxicillin Rash Low 03/08/2019 Clindamycin Rash Low 2024 Ibuprofen Unknown 02/13/2016 Influenza Vaccines Unknown 03/08/2019 Levofloxacin Chest pressure,Headache,It madelyn,Joint Pain,Leg Pain,Palpitations Low 10/22/2023 Nitrofurantoin Shortness of Breath,Headache,Tach ycardia High 01/02/2020 Omeprazole Headache,Itching,Pal pitations,Rash Low 03/23/2024 Penicillins Hives,Rash,Swelling Low 10/14/2009 Reaction: Rash, Sulfa Antibiotics Hives,Itching,Rash Low 10/14/2009 Reaction: Rash, Tetracyclines & Related Rash Low Reaction: Rash, Medications Cholecalcifero l (VITAMIN D3) 50 MCG (1999) Tab Take 1 tablet (50 mcg total) by mouth daily. Active Pyridoxine-Zin c Picolinate 10-20 MG Cap Take 1 tablet by mouth daily. Active vitamin C (ASCORBIC ACID) 250 MG tablet Take 2 tablets (500 mg total) by mouth daily. Active cetirizine (ZYRTEC) 10 MG chewable tablet Chew 1 tablet (10 mg total) by mouth daily. Active Misc Natural Products (TURMERIC CURCUMIN) capsule Take 1 capsule by mouth daily. Active budesonide EC (ENTOCORT EC) 3 MG capsule Take 1 capsule (3 mg total) by mouth every morning. For 30 days 4 025 Discontinued(P t. elected to discontinue med) omeprazole (PRILOSEC) 20 MG capsule Take 1 capsule (20 mg total) by mouth 2 (two) times daily. 4 025 Discontinued(P t. elected to discontinue med) azithromycin (ZITHROMAX) 250 MG tabletIndicati ons:Acute non-recurrent maxillary sinusitis Take 2 tabs daily for one day, then take 1 tab daily 6 tablet 5 025 Discontinued(P t. 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 She is wanting provider to evaluate. The patient states she feels the rash was caused by omeprazole. ); Anemia (The patient is wanting to discuss labs for anemia. The patient states she has had fatigue and leg pains. The patient states she stopped pepcid and leg pains resolved. ) 08/01/2024 - 08/01/2024 11:59 PM CDT Hospital Encounter [facility] [address] [place] [address] Stewart Hernandez, DO Discharge Disposition: Home or Self Care (Routine Discharge) 08/01/2024 Travel from Last 3 Months Immunizations Immunization Administration Dates Next Due Tdap (Generic) 04/19/2011 Family History Medical History Relation Comments Depression Daughter Miscarriages / Stillbirths Daughter Alcohol Abuse Father COPD Father Heart Disease Father Hypertension Father CHF Mother COPD Mother She also has con gestive heart failure Diabetes Mother Heart Disease Mother Hypertension Mother Mental Health Mother Schizophrenia Cancer Paternal Grandmother breast and stomach Arthritis Sister Depression Sister Hypertension Sister Relation Status Comments Daughter Father Mother Paternal Grandmother Sister Social History Tobacco Use Types Packs/Day Years Used Date Smoking Tobacco: Never Smokeless Tobacco: Never Tobacco Cessation:Counseling Given: Yes Alcohol Use Standard Drinks/Week Comments No 0 (1 standard drink = 0.6 oz pur e alcohol) AUDIT-C Answer Date Recorded Frequency of Alcohol Consumption Never 03/08/2019 Average Number of Drinks Not on file 019 Frequency of Binge Drinking Not on file 02/18 PHQ-2 Answer Date Recorded Patient Health Questionnaire-2 Score 0 2024 Comments No Sex and Gender Information Value Date Recorded Sex Assigned at Female 2024 8:38 AM [facility] Legal Sex Female 6:00 PM CDT Gender Identity Female 2024 8:38 AM [facility] Sexual Orientation Not on file Occupation Industry Job Start Date Job End Date Not on file Not on file Not on file Not on file Last Filed Vital Signs Vital Sign Reading Time Taken Comments Blood Pressure 122/84 08/01/2024 8:00 AM CDT Pulse 78 08/01/2024 8:00 AM CDT Temperature 36.2 C (97.2 F) 08/01/2024 8:00 AM CDT Respiratory Rate 16 08/01/2024 8:00 AM CDT Oxygen Saturation 98% 08/01/2024 8:00 AM CDT Inhaled Oxygen Concentration - - Weight 62.6 kg (138 lb) 08/01/2024 8:00 AM CDT Height 168.9 cm (5' 6.5 ) 08/01/2024 8:00 AM CDT Body Mass Index 21.94 08/01/2024 8:00 AM CDT Plan of Treatment Health Maintenance Due Date Last Done Comments Cervical Cancer Screening Pap Smear (Age 30 to 64) Every 3 Years 1960 Cervical Cancer Screening Pap with HPV Testing (Age 30 to 64) Every 5 Years 1990 Annual Physical 01/04/2025 01/05/2024, 04/0 09/2022, 07/15/2021 COVID-19 Vaccine ( - season) 2025 Postponed from 12/19/2023 (Patient Refused) Cervical Cancer Screening with HPV 01/04/2025 Postponed from 1990 (Going to Outside Clinic) DTaP, Tdap and Td Vaccines (2 - Td or Tdap) 01/04/2025 04/19/2011 Postponed from 04/19/2021 (Patient Refused) RSV Immunization or 60+ Years (1 - Risk 60-74 years 1-dose series) 01/04/2025 Postponed fro m 2020 (Patient Refused) Zoster Vaccines (1 of 2) 01/04/2025 Pos tponed from 2010 (Patient Refused) Mammogram Screening 01/11/2025 01/12/2024, 10/07/2022, 05/15/2019 Pneumococcal Vaccine: 50+ Years (1 of 2 - PCV) 08/02/2025 Postponed from 1979 (Patient Refused) Colorectal Cancer Screening Colonoscopy (10 Years) 08/04/2026 08/04/2016, 10/06/2011 Hepatitis C 07/15/2056 Postponed from 1978 (Per Provider Recommendation) EGD-Dennis's Surveillance Discontinued 04/06, 02/23/2024, 08/04/2016, Additional history exists PHQ-2 (Physician [place]) Completed 2024 Meningococcal B Vaccine Aged Out No l onger eligible based on patient's age to complete this topic Meningococcal Vaccine Aged Out No maria d mraie eligible based on patient's age to complete this topic RSV Immunizations Under 20 Months Aged Out No longer eligible based on patient's age to complete this topic Procedures Procedure Name Priority Date/Time Associated Diagnosis Comments ANTINUCLEAR ANTIBODIES PATTERN Routine 08/01/2024 11:01 AM CDT ALINA IFA SCRN, WI REFLEX TO TITER Routine 08/01/2024 11:01 AM CDT SHILO, ANTIBODY TO Routine 08/01/2024 11:0 1 AM CDT IRON SAT PANEL (IRON,IBC,%SAT) Routine 08/01/2024 11:01 AM CDT Unintended weight loss Annual physical exam Screening for lipid disorders Screening for endocrine, metabolic and immunity disorder FERRITIN Routine 08/01/2024 11:01 AM CDT Unintended weight loss Annual physical exam Screening for lipid disorders Screening for endocrine, metabolic and immunity disorder CBC W/DIFF AUTOMATED Routine 08/01/2024 11:01 AM CDT Unintended weight loss Annual physical exam Screening for lipid disorders Screening for endocrine, metabolic and immunity disorder TSH W/REFLEX Routine 08/01/2024 11:01 AM CDT Unintended weight loss Annual physical exam Screening for lipid disorders Screening for endocrine, metabolic and immunity disorder COMPREHENSIVE METABOLIC PANEL Routine 08/01/2024 11:01 AM CDT Unintended weight loss Annual physical exam Screening for lipid disorders Screening for endocrine, metabolic and immunity disorder LIPID PANEL Routine 08/01/2024 11:01 AM CDT Unintended weight loss Annual physical exam Screening for lipid disorders Screening for endocrine, metabolic and immunity disorder ANTINUCLEAR ANTIBODY WI RFX Routine 08/01/2024 11:01 AM CDT Unintended weight loss HIV 1 ANTIGEN(S), WITH HIV-1 AND HIV-2 ANTIBODIES Routine 08/01/2024 11:01 AM CDT Unintended weight loss URINALYSIS, AUTO, COMPLETE Routine 08/01/2024 11:01 AM CDT Annual physical exam Screening for lipid disorders Screening for endocrine, metabolic and immunity disorder VITAMIN B-12 Routine 08/01/2024 11:01 AM CDT Annual physical exam Screening for lipid disorders Screening for endocrine, metabolic and immunity disorder COLLECTION VENOUS BLOOD VENIPUNCTURE Routine 08/01/2024 8:31 AM CDT Unintended weight loss Annual physical exam Screening for lipid disorders Screening for endocrine, metabolic and immunity disorder COLLECTION VENOUS BLOOD VENIPUNCTURE Routine 08/01/2024 8:30 AM CDT Unintended weight loss Annual physical exam Screening for lipid disorders Screening for endocrine, metabolic and immunity disorder EGD GENERIC (SCAN ORDER) 04/06/2024 MAMMOGRAM GENERIC (SCAN ORDER) 01/12/2024 COLONOSCOPY GENERIC (SCAN ORDER) 08/04/2016 from Last 3 Months or Most Recently Relevant to Health Maintenance Results * (ABNORMAL) ANTINUCLEAR ANTIBODIES PATTERN (08/01/2024 11:01 AM CDT) Pathologist [facility] ALINA TITER >=1:1280(A ) Negative 08/08/2024 6:28 PM CDT [facility]FF[facility] JESSICA MCLAIN Comment: Reference Range: <1:40 Negative 1:40-1:80 Low Antibody Level >1:80 Elevated Antibody Level Test Performed by [facility], [address] [place], [place] Baljit Zapata M.D., Ph.D., Director of Laboratories , [facility] [id number] ALINA PATTERN REPORT 08/08/2024 6:28 PM CDT TYFFON JESSICA MCLAIN Comment: Nuclear, Centromere Centromere pattern is associated with limited cutaneous systemic sclerosis, CREST (Calcinosis, Raynaud's, Esophageal dysmotility, Sclerodactyly, Telangiectasia), primary biliary cholangitis (PBC), and other autoimmune diseases. AC-3: Centromere International Consensus on ALINA Patterns https://doi.org/10.1515/nlso-4522-1281 ALINA TITER THREE END OF REPORT 08/08/2024 6:28 PM CDT [facility] JESSICA MCLAIN 08/01/2024 11:0 1 AM CDT Stewart Hernandez DO LABORATORY Final Re sult [facility] [address] [place], [place] , * (ABNORMAL) ALINA IFA SCRN, [place] REFLEX TO TITER (08/01/2024 11:01 AM CDT) Pathologist [facility] ALINA POSITIVE( A) Negative 08/08/2024 5:57 PM CDT TYFFON JESSICA MCLAIN Comment: ALINA IFA is a first line screen for detecting the presence of up to approximately 150 autoantibodies in various autoimmune diseases. A positive ALINA IFA result is suggestive of autoimmune disease and reflexes to titer and pattern. Further laboratory testing may be considered if clinically indicated. For additional information, please refer to http://education.Myworldwall/faq/RJF079 (This link is being provided for informational/ educational purposes only.) Test Performed by [facility], [facility], [address] [place] [address] Baljit Zapata M.D., Ph.D., Director of Laboratories , [facility] [id number] 08/01/2024 11:0 1 AM CDT Stewart Hernandez LABORATORY Final Re sult Performing Organization Address City/[facility]/ZIP Co de Phone Number TYFFON [address] , [place] [phone] * HIV 1 ANTIGEN(S), WITH HIV-1 AND HIV-2 ANTIBODIES (08/01/2024 11:01 AM CDT) Pathologist [facility] HIV 1/2 AB+ HIV1 P24 AG NON-REACTI VE NON-REACTI VE 08/01/2024 6:31 PM CDT [facility] Comment:HIV 1 p24 Ag and HIV 1/ HIV 2 Ab not detected. 08/01/2024 11:0 1 AM CDT Stewart Maria [email or web address] LABORATORY Final Re sult Performing Organization Address City/[facility]/ZIP Co de Phone Number [facility] [address] [place] [address], [place] [phone] * TSH W/REFLEX (08/01/2024 11:01 AM CDT) TSH 1.705 0.358 - 3.740 uIU/ML 08/01/2024 4:05 PM CDT [facility] 08/01/2024 11:0 1 AM CDT Stewart Hernandez DO LABORATORY Final Re sult Performing Organization Address City/[facility]/ZIP Co de Phone Number [facility] [address] [place] [address], [place] [phone] * ANTINUCLEAR ANTIBODY WI RFX (ALINA) (08/01/2024 11:01 AM CDT) Pathologist [facility] ALINA 15 08/02/2024 12:06 PM CDT [facility] Comment: POSITIVE: >1.0 RATIO SEE SEPARATE PROFILE RESULTS AND IFA TITER THE ALINA SCREEN TESTS FOR THE FOLLOWING ANTIBODIES BY EIA: SSA1 (RO), SSB1 (LA), NEGRO, SCL70, JO1, CENTROMERE, CLINICAL REHAB SPECIALIST HISTONE MUST BE ORDERED SEPARATELY DNA (DS) ANTIBODY 2.6 IU/ML 025 12:06 PM CDT [facility] Comment: NEGATIVE: <10 IU/mL EQUIVOCAL: 10 to 15 IU/mL POSITIVE: >15 IU/mL THIS QUANTITATIVE ASSAY IS CALIBRATED TO THE [employer]'S WO/80 STANDARD. THE LEVEL OF dsDNA AUTOANTIBODY GERERALLY CORRELATES WITH THE LEVEL OF DISEASE ACTIVITY IN SYSTEMIC LUPUS ERYTHMATOSUS 08/01/2024 11:0 1 AM CDT Stewart Hernandez DO LABORATORY Final Re sult Performing Organization Address City/[facility]/ZIP Co de Phone Number [facility] [address] [place] [address], [place] [phone] * ALINA PROFILE (08/01/2024 11:01 AM CDT) SSA ANTIBODY 1.3 0.0 - 6.9 U/mL 08/02/2024 2:53 PM CDT [facility] Comment: NEGATIVE: <7 U/mL EQUIVOCAL: 7 to 10 u/mL POSITIVE: >10 U/mL SSA AND/OR SSB AUTOANTIBODIES ARE DETECTED IN 60% TO 90% OF PATIENTS WITH SJOGREN'S SYNDROME AND IN 20% TO 40% OF PATIENTS WITH SYSTEMIC LUPUS ERYTHEMATOSUS. SSB ANTIBODY 0.5 0.0 - 6.9 U/mL 08/02/2024 2:53 PM CDT [facility] Comment: NEGATIVE: <7 U/mL EQUIVOCAL: 7 to 10 u/mL POSITIVE: >10 U/mL SSA AND/OR SSB AUTOANTIBODIES ARE DETECTED IN 60% TO 90% OF PATIENTS WITH SJOGREN'S SYNDROME AND IN 20% TO 40% OF PATIENTS WITH SYSTEMIC LUPUS ERYTHEMATOSUS. SM ANTIBODY <0.7 U/mL 08/02/2024 2:53 PM CDT [facility] Comment: NEGATIVE: <7 U/mL EQUIVOCAL: 7 to 10 u/mL POSITIVE: >10 U/mL Autoantibodies to Negro (Sm) antigen are found in 30% of patients with systemic lupus erythematosus and are highly specific for this disease. SCL 70 S/P/B 0.9 0.0 - 6.9 U/mL 08/02/2024 2:53 PM CDT [facility] Comment: NEGATIVE: <7 U/mL EQUIVOCAL: 7 to 10 u/mL POSITIVE: >10 U/mL AUTOANTIBODIES TO Scl-70 ARE FOUND IN UP TO 60% OF PATIENTS WITH SCLERODERMA (SYSTEMIC SCLEROSIS) AND ARE CONSIDERED TO BE SPECIFIC FOR THIS DISEASE. SERGE-1 ANTIBODY 0.4 U/mL 08/02/2024 2:53 PM CDT [facility] Comment: NEGATIVE: <7 U/mL EQUIVOCAL: 7 to 10 u/mL POSITIVE: >10 U/mL AUTOANTIBODIES TO Jo1 ARE FOUND IN 10% TO 50% OF PATIENTS WITH DERMATOMYOSITIS OR POLYMYOSITIS AND IN 20% OF PATIENTS WITH SCLERODERMA SYNDROME. Jo1 AUTOANTIBODIES ARE GENERALLY NOT SEEN OUTSIDE OF THESE DISEASE STATES. CENTROMERE B AB S/P/B >240 U/mL 08/02/2024 2:53 PM CDT [facility] Comment: NEGATIVE: <7 U/mL EQUIVOCAL: 7 to 10 u/mL POSITIVE: >10 U/mL AUTOANTIBODY TO CENTROMERE B IS SEEN IN 70% TO 85% OF PATIENTS WITH CREST (CALCINOSIS, RYNAUD'S PHENOMENON, ESOPHAGEAL HYPOMOTILITY, SCLERODACTYLY AND TELANGIECTASEA) SYNDROME VARIANT OF SYSTEMIC SCLEROSIS AND IN 10% TO 15% OF PATIENTS WITH PRIMARY BILIARY CIRRHOSIS. CLINICAL REHAB SPECIALIST (U1) AB S/P/B 2.1 0.0 - 4.9 U/mL 08/02/2024 2:53 PM CDT [facility] Comment: NEGATIVE: <5 U/mL EQUIVOCAL: 5 to 10 U/mL POSITIVE: >10 U/mL AUTOANTIBODIES TO CLINICAL REHAB SPECIALIST ARE FOUND IN GREATER THAN 95% OF PATIENTS WITH MIXED CONNECTIVE TISSUE DISEASE (MCTD), BUT ARE ALSO SEEN IN SYSTEMIC LUPUS ERYTHEMATOUS (40%), RHEUMATOID ARTHRITIS (10%), SCLERODERMA SYNDROME (10%), AND RARELY IN DRUG INDUCED LUPUS AND SJOGREN'S SYNDROME. ABSENCE OF CLINICAL REHAB SPECIALIST ANTIBODIES USUALLY RULES OUT MCTD. 08/01/2024 11:0 1 AM CDT Stewart Hernandez DO LABORATORY Final Re sult [facility] [place] [address], [phone] * (ABNORMAL) IRON SAT PANEL (IRON,IBC,%SAT) (08/01/2024 11:01 AM CDT) [facility] IRON 115 50 - 170 MCG/DL 08/01/2024 4:05 PM CDT [facility] IRON BINDING CAPACITY 248(L) 250 - 450 MCG/DL 08/01/2024 4:05 PM CDT [facility] IRON SATURATION 46 % 4:05 PM CDT [facility] Comment:REFERENCE RANGE NOT ESTABLISHED 08/01/2024 11:0 1 AM CDT Stewart Hernandez DO LABORATORY Final Re sult [facility] [address] [place] [address], * URINALYSIS (08/01/2024 11:01 AM CDT) COLOR (U) YELLOW 08/01/2024 3:29 PM CDT [facility] TRANSPARENCY CLEAR CLEAR 08/01/2024 3:29 PM CDT [facility] SPECIFIC GRAVITY (U) <1.005 1.003 - 1.040 08/01/2024 3:29 PM CDT [facility] U PH 6.0 5.0 - 9.0 08/01/2024 3:29 PM CDT [facility] PROTEIN RANDOM (U) NEGATIVE NEGATIVE 08/01/2024 3:29 PM CDT [facility] GLUCOSE (U) NEGATIVE NEGATIVE 08/01/2024 3:29 PM CDT [facility] KETONES MG/DL (U) NEGATIVE NEGATIVE 08/01/2024 3:29 PM CDT [facility] BILIRUBIN (U) NEGATIVE NEGATIVE 08/01/2024 3:29 PM CDT [facility] BLOOD (U) NEGATIVE NEGATIVE 08/01/2024 3:29 PM CDT [facility] UROBILINOGEN 0.2 0.0 - 2.0 EU/DL 08/01/2024 3:29 PM CDT [facility] NITRITES NEGATIVE NEGATIVE 08/01/2024 3:29 PM CDT [facility] LEUKOCYTES (U) NEGATIVE NEGATIVE 08/01/2024 3:29 PM CDT [facility] RBC/HPF 0-3 0 - 3 /HPF 08/01/2024 3:29 PM CDT [facility] WBC/HPF 0-3 0 - 3 /HPF 08/01/2024 3:29 PM CDT [facility] EPI/HPF 0-3 /HPF 08/01/2024 3:29 PM CDT [facility] BACTERIA (U) NONE SEEN NONE SEEN 08/01/2024 3:29 PM CDT [facility] URINE SPECIMEN OBTAINED BY CLEAN CATCH PROCEDURE / Unknown 08/01/2024 11:01 AM CDT us Stewart Hernandez DO URINE ORDERABLES Final R esult Performing Organization Address [facility]/ZIP Co de Phone Number [facility] [address] [place] [phone], [place] [phone] * VITAMIN B-12 (08/01/2024 11:01 AM CDT) VITAMIN B12 S/P/B 932 193 - 986 PG/ML 08/01/2024 4:05 PM CDT [facility] 08/01/2024 11:0 1 AM CDT us Stewart Hernandez DO LABORATORY Final Re sult Performing Organization Address City/[facility]/ZIP Co de Phone Number [facility] [address] [place] [address], [place] [phone] * (ABNORMAL) COMPREHENSIVE METABOLIC PANEL (08/01/2024 11:01 AM CDT) SODIUM S/P/B 140 136 - 145 MMOL/L 08/01/2024 4:05 PM CDT [facility] POTASSIUM S/P/B 4.6 3.5 - 5.1 MMOL/L 08/01/2024 4:05 PM [facility] CHLORIDE S/P/B 102 98 - 107 MMOL/L 08/01/2024 4:05 PM [facility] CO2 30.7 21 - 32 MMOL/L 08/01/2024 4:05 PM [facility] GLUCOSE 100(H) 70 - 99 MG/DL 08/01/2024 4:05 PM [facility] BUN 10 7 - 18 MG/DL 08/01/2024 4:05 PM [facility] CREATININE S/P/B 0.71 0.55 - 1.02 MG/DL 08/01/2024 4:05 PM [facility] CALCIUM S/P/B 10.3 8.4 - 10.5 MG/DL 08/01/2024 4:05 PM [facility] BILIRUBIN TOTAL S/P/B 0.6 0.2 - 1.0 MG/DL 08/01/2024 4:05 PM [facility] ALKALINE PHOSPHATASE S/P/B 63 50 - 130 U/L 08/01/2024 4:05 PM [facility] AST 14(L) 15 - 37 U/L 08/01/2024 4:05 [facility] ALT 24 14 - 59 U/L 08/01/2024 4:05 PM [facility] TOTAL PROTEIN S/P/B 7.5 6.4 - 8.2 G/DL 08/01/2024 4:05 PM [facility] ALBUMIN S/P/B 4.4 3.4 - 5.0 G/DL 08/01/2024 4:05 PM T [facility] ANION GAP 7.3 5 - 15 MMOL/L 08/01/2024 4:05 PM [facility] Comment:REFERENCE RANGE NOT ESTABLISHED OSMOLALITY (CALC) 289 MOSM/KG 025 4:05 PM CDT [facility] Comment:REFERENCE RANGE NOT ESTABLISHED GFR ESTIMATE >90 >90 ML/MIN/1. 73 M2 08/01/2024 4:05 PM CDT [facility] GFR NOTES GFR REFERENCE S: 08/01/2024 4:05 PM CDT [facility] Comment: THE ESTIMATED GFR IS CALCULATED USING THE 2020 CKD-EPI EQUATION. THE FOLLOWING CATEGORIES FOR GRADING RENAL FUNCTION ARE RECOMMENDED BY THE INTERNATIONAL SOCIETY OF NEPHROLOGY (KDIGO 2012 CLINICAL PRACTICE GUIDELINE). G1,NORMAL OR HIGH: >89 ml/min/1.73 m2 G2,MILDLY DECREASED: 60-89 ml/min/1.73 m2 G3A,MILDLY TO MODERATELY DECREASED: 45-59 ml/min/1.73 m2 G3B,MODERATELY TO SEVERELY DECREASED: 30-44 ml/min/1.73 m2 G4,SEVERELY DECREASED: 15-29 ml/min/1.73 m2 G5,KIDNEY FAILURE: <15 ml/min/1.73 m2 08/01/2024 11:0 1 AM CDT us Stewart Hernandez DO LABORATORY Final Re sult [facility] [address] [place] [address], * (ABNORMAL) LIPID PANEL (08/01/2024 11:01 AM CDT) CHOLESTEROL 265(H) <200 MG/DL 08/01/2024 4:05 PM CDT [facility] TRIGLYCERIDES 82 <150 MG/DL 08/01/2024 4:05 PM CDT [facility] HDL 68 >40 MG/DL 08/01/2024 4:05 PM CDT [facility] LDL-C 181(H) <100 MG/DL 08/01/2024 4:05 PM CDT [facility] VLDL CALCULATION 16 5 - 28 MG/DL 08/01/2024 4:05 PM CDT [facility] CHOL/HDL RATIO 3.9 0.0 - 4.0 08/01/2024 4:05 PM CDT [facility] LDL/HDL 2.7(H) 0.41 - 2.13 08/01/2024 4:05 PM CDT [facility] NON HDL CHOLESTEROL 197(H) <140 MG/DL 08/01/2024 4:05 PM CDT [facility] 08/01/2024 11:0 1 AM CDT Stewart Hernandez DO LABORATORY Final Re sult [facility] [address] [place] [address], * CBC W/DIFF AUTOMATED (08/01/2024 11:01 AM CDT) WBC 5.33 4.00 - 10.80 x10'3/uL 08/01/2024 2:29 PM CDT [facility] RBC 4.83 4.10 - 5.40 x10'6/uL 08/01/2024 2:29 PM CDT [facility] HGB 14.6 12.0 - 16.0 G/DL 08/01/2024 2:29 PM CDT [facility] HCT 43.2 36.0 - 47.0 % 08/01/2024 2:29 PM CDT [facility] MCV 89.4 78.0 - 100.0 FL 08/01/2024 2:29 PM CDT [facility] MCH 30.2 27.0 - 31.0 PG 08/01/2024 2:29 PM CDT [facility] MCHC 33.8 33.0 - 36.0 G/DL 08/01/2024 2:29 PM CDT -[facility] RDW 11.7 11.5 - 14.5 % 08/01/2024 2:29 PM CDT -[facility] PLT 320 150 - 350 x10'3/uL 08/01/2024 2:29 PM CDT [facility] MPV 10.1 7.4 - 10.4 FL 08/01/2024 2:29 PM CDT [facility] DIFFERENTIAL TYPE AUTOMATED DIFFERENTIAL 08/01/2024 2:29 PM CDT [facility] NEUTROPHILS % 49.6 % 08/01/2024 2:29 PM CDT [facility] LYMPHOCYTES % 37.9 % 08/01/2024 2:29 PM CDT [facility] MONOCYTES % 10.3 % 08/01/2024 2:29 PM CDT [facility] EOSINOPHILS % 1.1 % 08/01/2024 2:29 PM CDT [facility] BASOPHILS % 0.9 % 08/01/2024 2:29 PM CDT [facility] IMMATURE GRANS % 0.2 % 08/01/2024 2:29 PM CDT [facility] ABS. NEUTROPHILS 2.64 1.60 - 8.30 x10'3/uL 08/01/2024 2:29 PM CDT [facility] ABS. LYMPHOCYTES 2.02 0.80 - 4.70 x10'3/uL 08/01/2024 2:29 PM CDT [facility] ABS. MONOCYTES 0.55 0.00 - 1.50 x10'3/uL 08/01/2024 2:29 PM CDT [facility] ABS. EOSINOPHILS 0.06 0.00 - 0.40 x10'3/uL 08/01/2024 2:29 PM CDT [facility] ABS. BASOPHILS 0.05 0.00 - 0.20 x10'3/uL 08/01/2024 2:29 PM CDT [facility] ABS. IMMATURE GRANULOCYTES 0.01 0.00 - 0.03 x10'3/uL 08/01/2024 2:29 PM CDT [facility] 08/01/2024 11:0 1 AM CDT Stewart Hernandez DO LABORATORY Final Re sult Performing Organization Address [facility] Co de Phone Number [facility] [id number] [place] [address], [place] [phone] * (ABNORMAL) FERRITIN (08/01/2024 11:01 AM CDT) FERRITIN 309.0(H) 8 - 252 NG/ML 08/01/2024 4:05 PM CDT [facility] 08/01/2024 11:0 1 AM CDT Stewart Hernandez DO LABORATORY Final Re sult Performing Organization Address [facility] de Phone Number [id number] [place] [address], [place] [phone] * EGD GENERIC (SCAN ORDER) (04/06/2024) 04/06/2024 [facility] Scanned SCANNING Final Resu lt * MAMMOGRAM GENERIC (SCAN ORDER) (01/12/2024) Anatomical Region Laterality Modality Other 01/12/2024 [facility] Scanned SCANNING Final Resu lt * COLONOSCOPY GENERIC (08/04/2016) 08/04/2016 Narrative 08/04/2016 Ordered by an unspecified provider. us [facility] Scanned SCANNING Final Result from Last 3 Months or Most Recently Relevant to Health Maintenance Insurance [employer] OPEN ACCESS [facility] Care Teams Corporate Planning Manager Relationship Specialty Start Date End Date Stewart Hernandez DO [address] [place] [id number] PCP - General FAMILY PRACTICE 03/08/19
--- OUTSIDE RECORDS SUMMARY | 2024-08-10 06:49 | XMS_ITS | Clinical Summary ---
Author Organization [facility] Address [address] 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 This disclosure is being madepursuant to the Care Everywhere program and may not contain all information available regarding this patient. Last updated 18.[facility] Social History Tobacco Use Types Packs/Day Years Used Date Smoking Tobacco: Never Assessed Comments Unknown Sex and Gender Information Value Date Recorded Sex Assigned at Not on file Legal Sex Female 6:37 AM CDT Gender Identity Not on file Sexual Orientation Not on file Plan of Treatment Health Maintenance Due Date Last Done Comments COLOGUARD (AGES 45-75) - COL ON CA SCREENING 1960 COLON MONITORING 1960 COLONOSCOPY - COLON CA SCREENING 1960 CT COLONOGRAPHY - COLON CA SCREENING 1960 Colorectal Cancer Screening 1960 FIT - COLON CA SCREENING 1960 FLEX SIG - COLON CA SCREENING 1960 LIPID TESTING 1960 MAMMOGRAM 1960 PAP SMEAR 1960 HIV SCREENING 1975 HEPATITIS C SCREENING 04/22/1978 DTAP/TDAP/TD VACCINES (1 - Tdap) 1979 PNEUMOCOCCAL VACCINE 50+ (1 of 1 - PCV) 2010 ZOSTER VACCINE (1 of 2) 2010 COVID-19 VACCINE ( - 2023-2 5 season) 2023 DEPRESSION SCREENING 04/19/2024 INFLUENZA VACCINE (Season Ended) 2024 Respiratory Syncytial Virus (RSV) Vaccine Pt: or over 60 yrs (1 - 1-dose 75+ series) 2035 HEPATITIS B VACCINE Aged Out No longe r eligible based on patient's age to complete this topic HIB VACCINE Aged Out No longer eligi ble based on patient's age to complete this topic HPV VACCINE Aged Out No longer eligi ble based on patient's age to complete this topic MENINGOCOCCAL (Group B) VACC INE SHARED DECISION-MAKING Aged Out No longer eligibl e based on patient's age to complete this topic MENINGOCOCCAL GROUPS A/C/Y/W VACCINE Aged Out No longer eligible b ased on patient's age to complete this topic PNEUMOCOCCAL VACCINE Aged Out No long er eligible based on patient's age to complete this topic Insurance [employer] SELF PAY NO INSURANCE Member Subscriber Plan / Payer (Ef fective for All Dates) Name:Jose Torres Member ID:Not on file Relation to Subscriber:Not on file Name:JOSE TORRES Subscriber ID:Not on file (Home) Address: [address] [place] [phone] Payer ID:Not on file Group ID:Not on file Type:Self Pay Address: [place], [place]
[2024-08-10 07:21] LABS: Estimated Glomerular Filt Rate > 60
== END 2024-08-10 06:43 | disposition home or self-care (01) ==
PROVIDERS: PCP Student in an Organized Health Care Education/Training Program; Visit Provider Student in an Organized Health Care Education/Training Program
DX: R63.4 Abnormal weight loss (principal)
CPT/HCPCS: 71260; 74177; Q9967

== ENCOUNTER 2025-01-18 15:13 | Outpatient (CLI) | payer OTHER, SELFPAY ==
--- NOTE | ~2025-01-18 | MM_ITS ---
EXAMINATION: MM screening [facility] BI w sherif HISTORY: Screening TECHNIQUE: Craniocaudal and mediolateral oblique 3-D tomosynthesis images were obtained and synthetic 2-D images were generated. CAD analysis was submitted and interpreted. COMPARISON: Comparison to multiple prior studies sequentially, with oldest reviewed study dated 04/15/2018. BREAST PARENCHYMAL COMPOSITION: Not dense: There are scattered areas of fibroglandular density. FINDINGS: There is no evidence of suspicious mass, calcification, or architectural distortion to suggest malignancy in either breast. There has been no suspicious interval change. IMPRESSION: 1. No mammographic evidence of malignancy. 2. Recommend routine screening mammography in one year. BI-RADS Category 1: Negative Reviewed, dictated and finalized at location B.
== END 2025-01-18 15:14 | disposition home or self-care (01) ==
LOC: MICIMG 15:14
PROVIDERS: PCP Student in an Organized Health Care Education/Training Program
DX: Z12.31 Encounter for screening mammogram for malignant neoplasm of breast (principal)
CPT/HCPCS: 77063; 77067